=== PATIENT | female | born 1965 | race Caucasian/White ===

== ENCOUNTER 2024-08-12 11:46 | Outpatient (CLI) | payer OTHER, SELFPAY ==
--- NOTE | ~2024-08-12 | XR_ITS ---
Clinical Indication: Nicotine dependence PA and lateral views of the chest: Comparison: None Findings: The lungs are clear, without evidence of focal consolidation or pleural effusion. Cardiome diastinal silhouette is within normal limits. Bones and soft tissues are unremarkable. Impression: Normal chest. Reviewed, dictated and finalized at location . Impression: Normal chest.
--- OUTSIDE RECORDS SUMMARY | 2024-08-12 13:04 | XMS_ITS | Clinical Summary ---
Author Organization [facility] Address [address] [place] [address] Phone Care Team Providers Care Automotive Service Porter Name Role Phone Provider, None Primary Care Provider Unavailabl e Allergies No known active allergies Medications No known medications Social History Tobacco Use Types Packs/Day Years Used Date Smoking Tobacco: Every Day Smokeless Tobacco: Never Comments No Sex and Gender Information Value Date Recorded Sex Assigned at Not on file Legal Sex Female 2:47 PM CDT Gender Identity Not on file Sexual Orientation Not on file Last Filed Vital Signs Vital Sign Reading Time Taken Comments Blood Pressure 110/67 2017 3:52 PM CDT Pulse 93 2017 2:50 PM CDT Temperature 36.9 C (98.4 F) 2017 2:50 PM CDT Respiratory Rate 18 2017 2:50 PM CDT Oxygen Saturation 96% 2017 2:50 PM CDT Inhaled Oxygen Concentration - - Weight 61.2 kg (135 lb) 2017 2:50 PM CDT Height 160 cm (5' 3 ) 2017 2:50 PM CDT Body Mass Index 23.91 2017 2:50 PM CDT Plan of Treatment Not on file Care Teams Automotive Service Porter Relationship Specialty Start Date End Date Provider, None [place] PCP - General 02/15/17
[2024-08-12 19:59] LABS: Mean Corpuscular HGB Conc 33.3 g/dl (32-36); Mean Corpuscular Hemoglobin 32.8 pg (26-34); Mean Corpuscular Volume 98.3 fl (80-100); Mean Platelet Volume 11.7 fl (7.4-10.4); Platelet Count Result 288 k/mm3 (150-375); Red Blood Count 4.58 M/mm3 (4.2-5.4); White Blood Count 7.8 K/mm3 (4.5-10.0)
[2024-08-12 20:00] LABS: Alanine Aminotransferase 25 U/L (6-35); Albumin Level 4.9 g/dL (3.5-5.1); Alkaline Phosphatase 101 U/L (38-126); Anion Gap 11 mmol/L (4-12); Aspartate Amino Transferase 49 U/L (14-36); Bilirubin,Total 0.5 mg/dL (0.2-1.3); Blood Urea Nitrogen 10 mg/dL (7-17); Calcium 9.9 mg/dL (8.4-10.2); Carbon Dioxide 27 mmol/L (22-30); Chloride 102 mmol/L (98-107); Cholesterol 217 mg/dL (0-200); Estimated Glomerular Filt Rate > 60; Glucose 113 mg/dL (65-110); HDL Direct 81 mg/dL; Potassium 4.9 mmol/L (3.4-5.0); Sodium 140 mmol/L (137-145); Triglycerides 87 mg/dL (<150)
[2024-08-12 20:12] LABS: LDL Cholesterol Direct 109 mg/dL
== END 2024-08-12 11:47 | disposition home or self-care (01) ==
LOC: ANHBWCLAB 11:47
PROVIDERS: PCP Nurse Practitioner Adult Health; Visit Provider Nurse Practitioner Adult Health
DX: Z13.9 Encounter for screening, unspecified (principal); F17.200 Nicotine dependence, unspecified, uncomplicated
CPT/HCPCS: 36415; 71046; 80053; 80061; 82607; 84425; 84443; 85027

== ENCOUNTER 2024-08-13 11:57 | Outpatient (CLI) | payer OTHER, SELFPAY ==
--- OUTSIDE RECORDS SUMMARY | 2024-08-13 13:24 | XMS_ITS | Clinical Summary ---
Author Organization [facility] Address [address] [place] [address] Phone Care Team Providers Care Credit And Collections Representative Name Role Phone Provider, None Primary Care [...] of Treatment Not on file Care Teams Credit And Collections Representative Relationship Specialty Start Date End Date Provider, None [place] PCP - General 02/15/17
[2024-08-13 20:20] LABS: Hemoglobin A1C 5.5 % (<5.7)
== END 2024-08-13 11:58 | disposition home or self-care (01) ==
LOC: ANHBWCLAB 11:58
PROVIDERS: PCP Nurse Practitioner Adult Health; Visit Provider Nurse Practitioner Adult Health
DX: R73.9 Hyperglycemia, unspecified (principal)
CPT/HCPCS: 36415; 83036

== ENCOUNTER 2024-09-23 12:17 | Outpatient (CLI) | payer OTHER, SELFPAY ==
--- NOTE | ~2024-09-23 | MM_ITS ---
EXAMINATION: MM scrn rolanda implant BI w maria e HISTORY: Screening mammogram TECHNIQUE: Craniocaudal and mediolateral oblique 3-D tomosynthesis images with implant displacement a nd synthetic 2-D images were generated. Craniocaudal and mediolateral oblique views of the breasts wi thout implant displacement were obtained using full field digital mammography. CAD analysis was submi tted and interpreted. COMPARISON: No prior mammogram is available for comparison at this institution. BREAST PARENCHYMAL COMPOSITION: FINDINGS: There are bilateral subpectoral breast implants. There is no evidence of suspicious mass, c alcification, or architectural distortion to suggest malignancy in either breast. There has been no s uspicious interval change. IMPRESSION: 1. No mammographic evidence of malignancy. 2. Recommend routine screening mammography in one year. BI-RADS Category 1: Negative Reviewed, dictated and finalized at location A.
--- OUTSIDE RECORDS SUMMARY | 2024-09-23 12:20 | XMS_ITS | Clinical Summary ---
Author Organization [facility] Address [address] [place] [address] Phone Care Team Providers Care Precast Concrete Ironworker Name Role Phone Provider, None Primary Care [...] of Treatment Not on file Care Teams Precast Concrete Ironworker Relationship Specialty Start Date End Date Provider, None [place] PCP - General 02/15/17
== END 2024-09-23 12:18 | disposition home or self-care (01) ==
LOC: CHSIMG 12:18
PROVIDERS: PCP Nurse Practitioner Adult Health; Visit Provider Nurse Practitioner Adult Health
DX: Z12.31 Encounter for screening mammogram for malignant neoplasm of breast (principal)
CPT/HCPCS: 77062; 77063; 77066; 77067; G0279

== ENCOUNTER 2025-01-06 00:14 | Day surgery (SDC) | payer OTHER, SELFPAY ==
[2024-12-23 14:56] VITALS: BMI 25.0
--- OUTSIDE RECORDS SUMMARY | 2025-01-06 00:16 | XMS_ITS | Encounter Summary ---
Author Organization [facility] Address [address] [place] [address] Care Team Providers Care Track Repair Supervisor Name Role Phone Marline Gallardo Primary Care Provider + Encounter Details Date Type Department Care Team (Late st Contact Info) Description 12/18/2024 Results Follow-Up [facility] - Dermatology [address] [place] [phone] Estuardo Delgado MD [address] [place] [address] [place] [phone] Social History Tobacco Use Types Packs/Day Years Used Date Smoking Tobacco: Never Assessed Comments Unknown Sex and Gender Information Value Date Recorded Sex Assigned at Not on file Legal Sex Female 7:[address]OR Gender Identity Not on file Sexual Orientation Not on file documented as of this encounter Plan of Treatment Upcoming Encounters Date Type Department Care Team (Late st Contact Info) Description 03/25/2025 9:[address] Office Visit [facility] - Dermatology [address] [place] [phone] Estuardo Delgado MD [address] [place] [address] [place] [phone] documented as of this encounter Visit Diagnoses Not on filedocumented in this encounter Care Teams Track Repair Supervisor Relationship Specialty Start Date End Date Marline Gallardo APRN-CNP Family Medicine [address] [address] PCP - General 10/27/24 documented as of this encounter
--- OUTSIDE RECORDS SUMMARY | 2025-01-06 00:16 | XMS_ITS | Clinical Summary ---
Author Organization [facility] Address [address] [place] [address] Care Team Providers Care Finishing Trimmer Name Role Phone Marline Gallardo ARRON-GASTROENTEROLOGY NURSE Primary Care Provider + Source Comments [facility],non-owned Affiliates and Associated Physician Practices is amultiple site organization consisting of ambulatory clinics and hospital sitesin [place], [place], [place] and [place]. This disclosure is being madepursuant to the Care Everywhere program and may not contain all information available regarding this patient. Last updated 18.[facility] Allergies No known active allergies Medications * Be aware that medications may not be up to date on this document. Alwaysverify current medications with the patient. varenicline (Chantix) 1 MG tablet 1 MG ORALLY TWICE A DAY FOR 12 WEEKS 11/18/2024 Active buPROPion XL 24hr (Wellbutrin-XL) 150 MG tablet Take 1 (one) tablet by mouth every morning 12/11/2024 Active Encounters Date Type Department Care Team Description 12/29/2024 Results Follow-Up [facility] - Dermatology [address] [place] [phone] Estuardo Delgado MD 12/25/2024 1:30 PM CDT Procedure visit [facility] - Dermatology [address] [place] [phone] Estuardo Delgado MD Malignant melanoma of left forearm (HCC) 12/25/2024 Travel 12/19/2024 Travel 12/18/2024 Results Follow-Up [facility] - Dermatology [address] [place] [phone] Estuardo Delgado MD 12/17/2024 9:40 AM CDT Office Visit [facility] - Dermatology [address] [place] [phone] Estuardo Delgado MD Multiple benign melanocytic nevi of both upper extremities, both lower extremities, and trunk (Primary Dx); Rice angioma; Lentigines; Seborrheic keratoses; Neoplasm of unspecified behavior of bone, soft tissue, and skin 12/17/2024 Travel 10/27/2024 Travel from Last 3 Months Social History Tobacco Use Types Packs/Day Years Used Date Smoking Tobacco: Never Assessed Comments Unknown Sex and Gender Information Value Date Recorded Sex Assigned at Not on file 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 Gender Identity Not on file Sexual Orientation Not on file Plan of Treatment Upcoming Encounters Date Type Department Care Team ([facility] st Contact Info) Description 03/25/2025 9:00 AM MARBLE MACHINE OPERATOR Office Visit [facility] - Dermatology [address] [place] [phone] Estuardo Delgado MD [address] [place] [address] [address] [place] [phone] Health Maintenance Due Date Last Done Comments COLON MONITORING 1965 COLONOSCOPY - COLON CA SCREENING 1965 CT COLONOGRAPHY - COLON CA SCREENING 1965 FIT - COLON CA SCREENING 1965 FLEX SIG - COLON CA SCREENING 1965 LIPID TESTING 1965 MAMMOGRAM 1965 HIV SCREENING 02/16/1980 HEPATITIS C SCREENING 02/11/1983 DTAP/TDAP/TD VACCINES (1 - Tdap) 02/16/1984 HEPATITIS B VACCINE (1 of 3 - 19+ 3-dose series) 02/16/1984 PAP SMEAR 1986 PNEUMOCOCCAL VACCINE 50+ (1 of 1 - PCV) 2015 ZOSTER VACCINE (1 of 2) 2015 COVID-19 VACCINE ( - 2023-2 5 season) 2024 DEPRESSION SCREENING 05/14/2024 INFLUENZA VACCINE (#1) 2025 COLOGUARD (AGES 45-75) - COL ON CA SCREENING 09/02/2027 09/01/2024 Colorectal Cancer Screening 09/02/2027 HIB VACCINE Aged Out No longer eligi ble based on patient's age to complete this topic HPV VACCINE Aged Out No longer eligi ble based on patient's age to complete this topic MENINGOCOCCAL (Group B) VACC INE SHARED DECISION-MAKING Aged Out No longer eligibl e based on patient's age to complete this topic MENINGOCOCCAL GROUPS A/C/Y/W VACCINE Aged Out No longer eligible b ased on patient's age to complete this topic Procedures Procedure Name Priority Date/Time Associated Diagnosis Comments MI INTMD WND REPAIR TRUNK,ARM,LEG 2.6-7.5 Routine 12/25/2024 2:39 PM CDT Malignant melanoma of left forearm (HCC) MI EXC SKIN MALIG 2.1-3CM TRUNK,ARM,LEG Routine 12/25/2024 2:39 PM CDT Malignant melanoma of left forearm (HCC) DERMATOPATHOLOGY Routine 12/25/2024 1:46 PM CDT Malignant melanoma of left forearm (HCC) MI PUNCH BX SKIN SINGLE LESION Routine 12/17/2024 11:18 AM CDT Neoplasm of unspecified behavior of bone, soft tissue, and skin DERMATOPATHOLOGY Routine 12/17/2024 10:0 0 AM CDT Neoplasm of unspecified behavior of bone, soft tissue, and skin from Last 3 Months Results * MI EXC SKIN MALIG 2.1-3CM TRUNK,ARM,LEG, MI INTMD WND REPAIR TRUNK,ARM,LEG 2.6-7.5 (12/25/2024 2:39PM CDT) Narrative Estuardo Delgado MD - 12/25/2024 2:39 PM CDT Estuardo Delgado MD 12/25/2024 2:51 PM Elliptical Excision with Intermediate Closure Date of Service: 12/25/2024 Tumor Type: Malignant Melanoma, Breslow depth 0.4mm Location: Left forearm Derm-Path Pre-op Lesion Size: 1.0 x 0.2 cm Post-op Lesion Size with Margin: 3.0 x 2.2 cm Surgical Margins: 1.0 cm Repair Type: intermediate Repair Size: 6.3 cm Suture Material: 4-0 monocryl, 3-0 PDS, Dermabond Level of Defect: fascia Primary Surgeon: Estuardo Delgado MD Ground Services Instructor: PAT Gay INDICATIONS: The risks of bleeding, infection, discomfort, incomplete removal, and scar formation were explained to the patient. All questions were answered. After informed consent, confirmation of site and identity, and appropriate instructions, the patient underwent the procedure as follows: PROCEDURE: With the patient in a supine position, the lesion was outlined with 1.0 cm margins measuring 3.0 x 2.0 cm. An ellipse was designed around the lesion to conform to relaxed skin tension lines in an effort to minimize scarring and deformity. The patient was then positioned on the table. The lesion and surrounding skin were prepped with chlorhexidine, draped, and anesthetized with 1% lidocaine with epinephrine 1:100,100 buffered with 1:10 sodium bicarbonate. Using a #15 blade the skin was excised along premarked lines. The resulting defect extended to adipose. Wound margins were undermined to limit functional deformity/impairment of adjacent structures. Bleeding vessels were controlled with monopolar electrodesiccation. The dermis and subcutaneous tissue were closed with buried vertical mattress sutures. Dermabond was carefully placed for maximum eversion and meticulous wound edge approximation. Blood loss was estimated to be less than 5cc. The area was coated with petrolatum and covered with a non-adherent dressing followed by gauze and tape. Postoperative instructions were reviewed per protocol. The patient left alert and fully oriented. The attending physician was present and always immediately available. No postoperative medications were prescribed. The patient will follow up with their primary supervisor channel process. Dr. Delgado performed the entire surgery, and documentation used to initiate this operative report. I entered the information in our [employer] DocFlowsheet with the information provided by Dr. Delgado on his handwritten, paper format, surgical worksheet, which was then used to initiate the create of this note. Dr. Delgado then reviewed and edited the note as needed to complete the note. Dominique Thapa MA I have reviewed the note, edited it as necessary and performed the entire procedure. Estuardo Delgado MD Ict Support Engineer 12/25/2024 us Estuardo Delgado MD PROCEDURE/MINOR SURGICAL ORDER CIRO Final Result * DERMATOPATHOLOGY (12/25/2024 1:46 PM CDT) Only the most recent of2 resultswithin the time period is included. Case Report Dermatopathology Report Case: [id number] Authorizing Provider: Estuardo Delgado MD Collected: 12/25/2024 01:46 PM Ordering Location: [facility] - Received: 12/25/2024 01:46 PM Dermatology Pathologist: Sophie Carranza MD Specimen: Skin, left forearm 1:20 PM CDT DERMATOPATHOLOGY LABORATORY Final Diagnosis Specimen A. SKIN, left forearm: DERMAL SCAR RESIDUAL MELANOMA NOT IDENTIFIED (L90.5) 1:20 PM CDT DERMATOPATHOLOGY LABORATORY at 1320 CDT Clinical History R/O Melanoma vs Scar Please check margins/prior biopsy 1:20 PM CDT DERMATOPATHOLOGY LABORATORY Gross Description Specimen A: Received is one formalin filled container labeled with the patient's name and designated left forearm.The specimen consists of an ellipse measuring 34o13o4 mm and is oriented with the hash at the 12 o'clock position labeled on the requisition as notched at 12 o'clock. The 12 to 6 o'clock margin is inked green. The 6 o'clock to 12 o'clock margin is inked red. The 12 o'clock tip is submitted in cassette 1. The 6 o'clock tip is submitted in cassette 2. The remainder of the ellipse is serially sectioned and submitted in cassettes 3-6. Jar 0. 1:20 PM CDT DERMATOPATHOLOGY LABORATORY Microscopic Description Specimen A. SKIN, left forearm: There are fibroblasts and collagen bundles oriented parallel to the skin surface. There are elongated blood vessels, some of which are oriented perpendicular to the skin surface. No residual melanoma is identified. 1:20 PM CDT DERMATOPATHOLOGY LABORATORY Disclaimer An external and internal positive and negative controls are appropriate for the histochemical, immunohistochemical and immunofluorescence stain(s) in this case (if any), except where stated explicitly. The performance characteristics of the stain(s) cited in this report were developed and its performance characteristic determined by the Dermatopathology Laboratory at [facility], directed by Dr. Glenn Mcgee. These tests need not be, and therefore are not, approved by the [place] Food and Drug Administration. The tests are used for clinical purposes. Billing Codes Specimen Charges Stain Charges 30264 1 1:20 PM CDT DERMATOPATHOLOGY LABORATORY Embedded Images 1:20 PM CDT DERMATOPATHOLOGY LABORATORY Pathology/Cytolo gy TISSUE SPECIMEN FROM SKIN / Unknown Collection / Unknown 12/25/2024 1:46 PM CDT 12/25/2024 1:46 PM CDT Estuardo Delgado MD LAB - PATHOLOGY/CYTOLOGY ORDER CIRO Final Result DERMATOPATHOLOGY LABORATORY [facility] - Department of Dermatology [address], [address] [phone] * MI PUNCH BX SKIN SINGLE LESION (12/17/2024 11:18 AM CDT) Narrative Estuardo Delgado MD - 12/17/2024 11:18 AM CDT Estuardo Delgado MD 12/17/2024 11:18 AM Risks, benefits and alternatives to punch biopsy were discussed with the patient. Verbal consent was obtained. Location: left forearm, rule out malignant melanoma Punch biopsy: 6mm Skin prep: Alcohol Anesthesia: 1% lidocaine with epi Closure: 4-0 nylon suture Dressing and wound care discussed. Patient agrees to phone call for results and message if not available. Estuardo Delgado MD Estuardo Delgado MD PROCEDURE/MINOR SURGICAL ORDER CIRO Final Result from Last 3 Months Insurance [facility] Care Teams Finishing Trimmer Relationship Specialty Start Date End Date Marline Gallardo APRN-GASTROENTEROLOGY NURSE Family Medicine [address] [address] PCP - General 10/27/24
--- OUTSIDE RECORDS SUMMARY | 2025-01-06 00:16 | XMS_ITS | Clinical Summary ---
Author Organization [facility] Address [address] [place] [address] Phone Care Team Providers Care Gusset Edger Name Role Phone Provider, None Primary Care [...] 2:50 PM CDT Height 160 cm (5' 3) 2017 2:50 PM CDT Body Mass Index 23.91 2017 2:50 PM CDT Plan of Treatment Not on file Care Teams Gusset Edger Relationship Specialty Start Date End Date Provider, None [place] PCP - General 02/15/17
--- OUTSIDE RECORDS SUMMARY | 2025-01-06 00:16 | XMS_ITS | Encounter Summary ---
Author Organization [facility] Address [address] [place] [address] Care Team Providers Care Neurological Physiotherapist Name Role Phone Marline Gallardo Primary Care Provider + Encounter Details Date Type Department Care Team (Late st Contact Info) Description 12/29/2024 Results Follow-Up [facility] - Dermatology [address] [place] [phone] Estuardo Delgado MD [address] [place] [address] [place] [phone] Social History Tobacco Use Types Packs/Day Years Used Date Smoking Tobacco: Never Assessed Comments Unknown Sex and Gender Information Value Date Recorded Sex Assigned at Not on file 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 Gender Identity Not on file Sexual Orientation Not on file documented as of this encounter Plan of Treatment Upcoming Encounters Date Type Department Care Team (Late st Contact Info) Description 03/25/2025 9:00 AM ENVIRONMENTAL ENGINEERING PROFESSOR Office Visit [facility] - Dermatology [address] [place] [phone] Estuardo Delgado MD [address] [place] [address] [place] [phone] documented as of this encounter Visit Diagnoses Not on filedocumented in this encounter Care Teams Neurological Physiotherapist Relationship Specialty Start Date End Date Marline Gallardo APRN-CNP Family Medicine [address] [address] PCP - General 10/27/24 documented as of this encounter
[2025-01-06 06:41] VITALS: BP 115/52; PULSE 65; RESP 18; TEMP 36.3; O2SAT 100; BMI 24.1
[2025-01-06 06:50] VITALS: BP 115/52; PULSE 65; RESP 18; TEMP 36.3; O2SAT 100
[2025-01-06] MEDS: LACTATED RINGERS 1,000 ML 150 ML IV CONT (06:59)
--- NOTE | 2025-01-06 07:12 | P.PNAN_ITS ---
Anes - Initial Pre Proc Eval Procedure: Operation Date: 01/06/25 08:00 Proposed Procedures p Colonoscopy - Gabriel Martinez MD Date/Time: 01/06/25 07:12 Surgeon: Gabriel Martinez MD Pre Op Diagnosis: Other fecal abnormalities Patient Data Age: 59 Gender: F Height: 1.6 m Weight: 61.9 kg Last Vital Signs Temp 36.3 C L 01/06/25 06:50 Pulse 65 01/06/25 06:50 Resp 18 01/06/25 06:50 BP 115/52 L 01/06/25 06:50 Pulse Ox 100 01/06/25 06:50 O2 Del Method Room Air 01/06/25 06:50 Allergies Allergy/AdvReac Type Severity Reaction Status Date / Time No Known Allergies Allergy Verified 01/06/25 06:40 Home Medications ?Medication ?Instructions ?Recorded ?Confirmed ?Type Areds 2 BYMOUTH 08/06/24 09/15/24 Hi story Multiple vitamin pack daily BYMOUTH 08/06/24 09/15/24 History varenicline tartrate 0.5 mg (11)-1 See Rx Instructions PO PER PKG DIR 08/12/24 01/06/25 Rx mg (42) tablets in a dose pack #53 ea (Chantix Starting Month Box) varenicline tartrate 0.5 mg (11)-1 See Rx Instructions PO PER PKG DIR 09/15/24 12/23/24 Rx mg (42) tablets in a dose pack #53 ea (Chantix Starting Month Box) varenicline tartrate 1 mg tablet 1 mg PO BID 12 weeks #168 tabs 10/20/24 12/23/24 Rx bupropion HCl 150 mg 24 hr tablet, See Rx Instructions .Route 12/11/24 01/06/25 Rx extended release .COMPLEX #90 tabs Patient hx anesthesia problems: none Family hx anesthesia problems: none Results Review: All pre-operative results and documents have been reviewed as part of the pre- operative evaluation. [facility] Past Medical History Medical History (Updated 09/15/24 @ 11:21 by Marline Gallardo APRN) delivery delivered Family History Family History Father Hypertension Sibling Hypertension Grandparent Hypertension Cancer History of ETOH abuse Grandparent Hypertension Cancer Grandparent History of ETOH abuse Social History Social History (Updated 01/06/25 @ 07:18 by Jj Dominguez DO) Smoking status: Current every day smoker Additional smoking assessment comments: 3 cig/day now, formerly 1.5 PPD 30 years Alcohol intake: current Alcohol use details: 4+ drinks/day Substance use type: does not use Gender identity (if verbalized by the patient): Female Agree to blood products: Yes Anes - Eval Final PreProcedure Day of Procedure 01/06/25 07:12 Patient weight: normal Heart: regular rate and rhythm Lungs: clear to auscultation and normal air movement Airway: Mallampati scale class II Neurological: alert and oriented Last oral intake: >/= 8 hours ASA classification: III Emergent: no Anesthetic plan: proceed Anesthesia type and monitoring: general GIVS and standard monitoring Results Review: All pre-operative results and documents have been reviewed as part of the pre- operative evaluation. Informed Consent: The patient's anesthetic plan and its attendant risks and benefits were discussed with the patient/family/POA. Questions were solicited and answers provided to the satisfaction of the patient/family/POA.
--- NOTE | 2025-01-06 08:03 | P.HP_ITS ---
H&P: HPI History of Present Illness Date/Time: 01/06/25 08:03 Chief Complaint: positive Cologuard test Narrative: This is the patient's first colonoscopy. There are no GI symptoms and there is no family history of colorectal cancer. Review of Systems Review of Systems: All systems reviewed & are unremarkable except as noted in HPI and below PMFSH Past Medical History Medical History (Updated 09/15/24 @ 11:21 by Marline Gallardo APRN) delivery delivered Family History Family History Father Hypertension Sibling Hypertension Grandparent Hypertension Cancer History of ETOH abuse Grandparent Hypertension Cancer Grandparent History of ETOH abuse Social History Social History (Updated 01/06/25 @ 07:18 by Jj Dominguez DO) Smoking status: Current every day smoker Additional smoking assessment comments: 3 cig/day now, formerly 1.5 PPD 30 years Alcohol intake: current Alcohol use details: 4+ drinks/day Substance use type: does not use Gender identity (if verbalized by the patient): Female Agree to blood products: Yes Meds Home Medications and Allergies Home Medications ?Medication ?Instructions ?Recorded ?Confirmed ?Type Areds 2 BYMOUTH 08/06/24 09/15/24 Hi story Multiple vitamin pack daily BYMOUTH 08/06/24 09/15/24 History varenicline tartrate 0.5 mg (11)-1 See Rx Instructions PO PER PKG DIR 08/12/24 01/06/25 Rx mg (42) tablets in a dose pack #53 ea (Chantix Starting Month Box) varenicline tartrate 0.5 mg (11)-1 See Rx Instructions PO PER PKG DIR 09/15/24 12/23/24 Rx mg (42) tablets in a dose pack #53 ea (Chantix Starting Month Box) varenicline tartrate 1 mg tablet 1 mg PO BID 12 weeks #168 tabs 10/20/24 12/23/24 Rx bupropion HCl 150 mg 24 hr tablet, See Rx Instructions .Route 12/11/24 01/06/25 Rx extended release .COMPLEX #90 tabs Allergies Allergy/AdvReac Type Severity Reaction Status Date / Time No Known Allergies Allergy Verified 01/06/25 06:40 Vital Signs Vital Signs - 24 hr 01/06/25 06:41 01/06/25 06:50 Temperature 97.3 F L 97.3 F L Pulse Rate 65 65 Respiratory Rate 18 18 Blood Pressure 115/52 L 115/52 L Pulse Oximetry 100 100 Oxygen Delivery Room Air Room Air Exam Const: General: cooperative and healthy appearing Resp: Effort & Inspection: normal respiratory effort and able to speak in complete sentences Auscultation: clear to auscultation bilaterally Cardio: Rate: regular rate Rhythm: regular rhythm GI: Inspection: normal to inspection GI Palp: No No hepatosplenomegaly present Auscultation: normal bowel sounds Rectal Exam: deferred Skin: General skin exam: normal color Psych: Appearance: grossly normal Mental Status: mental status grossly normal Assessment and Plan Assessment and plan (1) Positive colorectal cancer screening using Cologuard test: Code(s): R19.5 - Other fecal abnormalities Status: Acute Assessment and Plan: The patient is deemed a good candidate for the procedure. Consent signed. Will proceed.
[2025-01-06] MEDS: EPINEPHrine INJ 1 MG/10 ML SYRINGE XX (08:17)
[2025-01-06 08:37] VITALS: BP 123/75; PULSE 66; RESP 18; O2SAT 95
--- NOTE | 2025-01-06 08:37 | S_PTH ---
PATIENT: Brandy Ballesteros LOC: [facility] U#:[id number] AGE/SX: 59/F ROOM: RE01/06/[address]: Gabriel Martinez MD : 1965 BED: DIS: 01/06/2025 SPEC #: [id number] RECD: 01/06/25 10:03 STATUS: YO REQ #: [id number] MANUEL: 01/06/25 08:[address]: Gabriel Martinez DEPT: [facility] Surgical RECD BY: Cy Walton ENTERED: 01/06/25 10:03 SP TYPE: Surgical OTHR DR: Marline Gallardo APRN Tissues: A - Colon Polypectomy Procedures: Hematoxylin and Eosin Stain Gross and Microscopic Level 4
[2025-01-06 08:47] VITALS: BP 129/76; PULSE 63; RESP 16; O2SAT 100
[2025-01-06 08:57] VITALS: BP 132/76; PULSE 60; RESP 17; O2SAT 100
== END 2025-01-06 09:14 | disposition home or self-care (01) ==
PROVIDERS: PCP Nurse Practitioner Adult Health; Referring Provider Nurse Practitioner Adult Health; Visit Provider Internal Medicine Gastroenterology
PROC: 0DJD8ZZ Inspection of Lower Intestinal Tract, Via Natural or Artificial Opening Endoscopic (ICD-10-PCS; CPT 45378; principal; 2025-01-06 08:00)
DX: R19.5 Other fecal abnormalities (principal); D12.5 Benign neoplasm of sigmoid colon; F17.210 Nicotine dependence, cigarettes, uncomplicated; Z98.890 Other specified postprocedural states; Z80.9 Family history of malignant neoplasm, unspecified
CPT/HCPCS: 45385; 45381; 88305; J0168; J2704; J7120